=== PATIENT | female | born 2000 | race African-American/Black ===

== ENCOUNTER 2023-04-04 06:39 | Emergency (ER) | payer OTHER ==
[~2023-04-04] VITALS: Ht 185.4 cm; Wt 129.6 kg
[2023-04-04] MEDS ORDERED: ONDANSETRON 4MG 2ML VIAL IV ONE (07:10)
[2023-04-04] MEDS ORDERED: NS 1,000 ML IV ONE (07:10)
[2023-04-04] MEDS ORDERED: ACETAMINOPHEN 500 MG TAB PO ONE (07:10)
[2023-04-04 07:33] LABS: BASO # 0.1 10^3/uL (0.0-0.2); BASO % 0.9 % (0.0-1.0); EOS # 0.1 10^3/uL (0.0-0.5); EOS % 1.7 % (0.0-3.0); HEMOGLOBIN 12.1 g/dl (12.0-15.5); LYMPH # 2.8 10^3/uL (1.5-5.0); LYMPH % 36.1 % (24.0-44.0); MEAN CORPUSCULAR HEMOGLOBIN 26.1 pg (27.0-33.0); MEAN CORPUSCULAR HGB CONC 31.8 g/dl (32.0-36.5); MEAN CORPUSCULAR VOLUME 82.1 fl (80.0-96.0); MONO # 0.8 10^3/uL (0.0-0.8); MONO % 10.7 % (2.0-8.0); NEUTROPHILS % 50.5 % (36.0-66.0); PLATELET COUNT, AUTOMATED 367 10^3/uL (150-450); RED BLOOD COUNT 4.63 10^6/uL (4.00-5.40); WHITE BLOOD COUNT 7.8 10^3/uL (4.0-10.0)
[2023-04-04] MEDS ORDERED: ONDA4TAB6 PO (08:02)
[2023-04-04 08:04] LABS: LIPASE 30 U/L (12-53)
[2023-04-04 08:06] LABS: ALBUMIN 3.4 G/DL (3.2-5.2); ALKALINE PHOSPHATASE 49 U/L (46-116); ALT/SGPT 15 U/L (7.0-40); AST/SGOT 15 U/L (<34); BILIRUBIN,DIRECT 0.2 MG/DL (<0.4); BILIRUBIN,TOTAL 0.8 MG/DL (0.3-1.2); BLOOD UREA NITROGEN 11 MG/DL (9-23); CARBON DIOXIDE LEVEL 23 MMOL/L (20-31); CHLORIDE LEVEL 106 MMOL/L (98-107); CREATININE FOR GFR 0.78 MG/DL (0.55-1.30); GLOMERULAR FILTRATION RATE > 60.0 (>60); GLUCOSE, FASTING 94 MG/DL (60-100); SODIUM LEVEL 137 MMOL/L (136-145); TOTAL PROTEIN 6.7 G/DL (5.7-8.2)
[2023-04-04 08:17] VITALS: BP 134/72
== END 2023-04-04 08:47 | disposition home or self-care (01) ==
LOC: M ED 06:39
DX: R11.2 Nausea with vomiting, unspecified (principal); R19.7 Diarrhea, unspecified
CPT/HCPCS: 80048; 80076; 83690; 84702; 85025; 87880; 96374; 99284; J2405

== ENCOUNTER 2023-04-21 18:57 | Emergency (ER) | payer OTHER ==
[~2023-04-21] VITALS: Ht 185.4 cm; Wt 149.2 kg
[~2023-04-21 18:57] MED LIST: ONDA4TAB6 PO
[2023-04-21 18:58] VITALS: BP 135/79; TEMP 97.4; O2SAT 100
== END 2023-04-21 20:21 | disposition left against medical advice (07) ==
LOC: M ED 18:57
DX: R10.9 Unspecified abdominal pain (principal); Z53.21 Procedure and treatment not carried out due to patient leaving prior to being seen by health care provider

== ENCOUNTER → 2023-04-26 | Outpatient (REF) | LOC: M EMP 08:11 | PROVIDERS: ATTEND Family Medicine | DX: Z11.52 Encounter for screening for COVID-19 (principal) ==

== ENCOUNTER 2023-07-11 07:14 | Emergency (ER) | payer OTHER ==
[~2023-07-11] VITALS: Ht 185.4 cm; Wt 140.2 kg
[2023-07-11 07:15] VITALS: BP 132/67; TEMP 98.2; O2SAT 99
== END 2023-07-11 11:00 | disposition left against medical advice (07) ==
LOC: M ED 07:14
DX: Z53.21 Procedure and treatment not carried out due to patient leaving prior to being seen by health care provider (principal)

== ENCOUNTER 2024-11-07 14:57 | Outpatient (CLI) | payer OTHER ==
[~2024-11-07] VITALS: Ht 185.4 cm; Wt 156.5 kg
[~2024-11-07 14:57] MED LIST changes: +ONDA-282 PO; -ONDA4TAB6 PO
[2024-11-07 15:09] VITALS: BP 131/72
[2024-11-07] MEDS ORDERED: UNIS50CA PO (15:45)
[2024-11-07] MEDS ORDERED: B-650TAB2 PO (15:45)
[2024-11-07] MEDS ORDERED: PRENTAB29 PO (15:45)
[2024-11-07] MEDS ORDERED: HOME MED LIST COMPLETE! XX SCH (16:00)
== END 2024-11-07 16:35 | disposition home or self-care (01) ==
LOC: M LDO 14:57
PROVIDERS: ATTEND Obstetrics & Gynecology
DX: O36.8120 Decreased fetal movements, second trimester, not applicable or unspecified (principal); Z3A.22 22 weeks gestation of pregnancy; Z91.013 Allergy to seafood; Z91.018 Allergy to other foods; Z79.899 Other long term (current) drug therapy

== ENCOUNTER 2024-11-15 18:06 | Outpatient (CLI) | payer OTHER ==
[~2024-11-15] VITALS: Ht 185.4 cm; Wt 154.8 kg
[~2024-11-15 18:06] MED LIST changes: +B-650TAB2 PO; +PRENTAB29 PO; +UNIS50CA PO
[2024-11-15] MEDS ORDERED: ACET-907 PO (18:35)
[2024-11-15] MEDS ORDERED: TUMS500C PO (18:35)
[2024-11-15] MEDS ORDERED: VITA500045 PO (18:38)
[2024-11-15] MEDS ORDERED: HOME MED LIST COMPLETE! XX SCH (18:40)
[2024-11-15 18:45] VITALS: BP 128/65; O2SAT 99
[2024-11-15] MEDS: LACTATED RINGER'S 1000 ML IV STA (19:17)
[2024-11-15 19:36] LABS: APPEARANCE, URINE HAZY (CLEAR); BACTERIA, URINE AUTO NEGATIVE (NEGATIVE); BILIRUBIN, URINE AUTO NEGATIVE (NEGATIVE); BLOOD, URINE BLOOD NEGATIVE (NEGATIVE); CALCIUM OXALATE CRYSTALS SMALL; COLOR, URINE YELLOW (YELLOW); GLUCOSE, URINE (UA) AUTO NEGATIVE (NEGATIVE); KETONE, URINE AUTO 2+ mg/dL (NEGATIVE); LEUKOCYTE ESTERASE, URINE AUTO NEGATIVE (NEGATIVE); MUCUS, URINE SMALL (NEGATIVE); NITRITE, URINE AUTO NEGATIVE (NEGATIVE); PROTEIN, URINE AUTO 1+ mg/dL (NEGATIVE); RBC, URINE AUTO 1 /HPF (0-3); SPECIFIC GRAVITY URINE AUTO 1.026 (1.002-1.035); SQUAMOUS EPITHELIAL CELL UR AU 10 /HPF (0-6); UROBILINOGEN, URINE AUTO 0.2 mg/dL (0.0-2.0); WBC, URINE AUTO 2 /HPF (0-3)
[2024-11-15] MEDS: ONDANSETRON 4MG 2ML VIAL IV ONE (19:42)
[2024-11-15] MEDS: CALCIUM CARBONATE 500 MG CHEW U/D PO ONE (20:25)
[2024-11-15] MEDS: LR 1,000 ML IV SCH (20:26)
[2024-11-15] MEDS ORDERED: ONDA-282 PO (23:33)
[2024-11-15] MEDS ORDERED: OMEP-173 PO (23:35)
== END 2024-11-15 20:54 | disposition home or self-care (01) ==
LOC: M LDO 18:06
PROVIDERS: ATTEND Obstetrics & Gynecology
DX: O21.8 Other vomiting complicating pregnancy (principal); Z3A.25 25 weeks gestation of pregnancy
CPT/HCPCS: 81001; 96374; G0463; J2405